=== PATIENT | female | born 1945 | race Caucasian/White ===

== ENCOUNTER → 2016-03-13 | Outpatient (REF) | payer OTHER ==
[~2016-03-13] MED LIST: ATEN50TA2 PO; DULO30CA PO; DYAZ37.5 PO; EXCEDRINE PO; GABA300C3 PO; HYDR-3713 PO; OXYC15TA76 PO; ROBA500T PO; TAMO10TA PO; TYLE500T78 PO; WARF4TAB51 PO
[2016-03-13 16:47] LABS: MEAN CORPUSCULAR HGB CONC 34.9 g/dl (32.0-36.5); MEAN CORPUSCULAR VOLUME 88.9 fl (80.0-96.0); RED CELL DISTRIBUTION WIDTH 13.6 % (11.5-14.5); WHITE BLOOD COUNT 10.7 K/mm3 (4.0-10.0)
[2016-03-13 16:48] LABS: INR 1.02
[2016-03-13 17:42] LABS: ALBUMIN 3.3 GM/DL (3.2-5.2); ALBUMIN/GLOBULIN RATIO 1.03 (1.00-1.93); ALKALINE PHOSPHATASE 65 U/L (45-117); ALT/SGPT 13 U/L (12-78); ANION GAP 9 MEQ/L (8-16); AST/SGOT 12 U/L (15-37); BILIRUBIN,TOTAL 0.3 MG/DL (0.2-1.0); BLOOD UREA NITROGEN 23 MG/DL (7-18); CALCIUM LEVEL 8.8 MG/DL (8.8-10.2); CARBON DIOXIDE LEVEL 28 MEQ/L (21-32); CHLORIDE LEVEL 102 MEQ/L (98-107); CHOLESTEROL LEVEL 190 MG/DL (<200); GLOMERULAR FILTRATION RATE 52.1 (>39); POTASSIUM SERUM 3.5 MEQ/L (3.5-5.1); SODIUM LEVEL 139 MEQ/L (136-145); TOTAL PROTEIN 6.5 GM/DL (6.4-8.2); TRIGLYCERIDES LEVEL 831 MG/DL (<150)
[2016-03-13 17:47] LABS: GLUCOSE, FASTING 162 MG/DL (83-110)
[2016-03-15 10:29] LABS: HEP C VIRUS AB SCREEN MEDICARE < 0.0 INDEX (<0.8)
== END | disposition home or self-care (01) ==
LOC: M SFHCCLAY 10:55
PROVIDERS: ATTEND Family Medicine
DX: M54.16 Radiculopathy, lumbar region (principal); I10 Essential (primary) hypertension; E78.2 Mixed hyperlipidemia; Z79.01 Long term (current) use of anticoagulants; Z11.59 Encounter for screening for other viral diseases
CPT/HCPCS: 36415; 80053; 80061; 85027; 85610; G0463; G0472

== ENCOUNTER → 2016-04-22 | Outpatient (REF) | payer OTHER ==
[2016-04-22 20:35] LABS: INR 1.02
== END | disposition home or self-care (01) ==
LOC: M LAB REF 17:02
PROVIDERS: ATTEND Internal Medicine Medical Oncology
DX: C50.919 Malignant neoplasm of unspecified site of unspecified female breast (principal)

== ENCOUNTER → 2016-04-22 | Outpatient (REF) | payer OTHER ==
[2016-04-22 18:16] LABS: CHOLESTEROL LEVEL 166 MG/DL (<200); GLUCOSE, FASTING 162 MG/DL (83-110); TRIGLYCERIDES LEVEL 500 MG/DL (<150)
== END | disposition home or self-care (01) ==
LOC: M SFHCCLAY 09:37
PROVIDERS: ATTEND Family Medicine
DX: E11.9 Type 2 diabetes mellitus without complications (principal); E78.1 Pure hyperglyceridemia; C50.919 Malignant neoplasm of unspecified site of unspecified female breast

== ENCOUNTER → 2016-06-03 | Outpatient (REF) | payer OTHER ==
[2016-06-03 12:24] LABS: ANION GAP 10 MEQ/L (8-16); BLOOD UREA NITROGEN 19 MG/DL (7-18); CALCIUM LEVEL 8.9 MG/DL (8.8-10.2); CARBON DIOXIDE LEVEL 27 MEQ/L (21-32); CHLORIDE LEVEL 103 MEQ/L (98-107); CHOLESTEROL LEVEL 164 MG/DL (<200); GLOMERULAR FILTRATION RATE 47.1 (>39); GLUCOSE, FASTING 164 MG/DL (83-110); POTASSIUM SERUM 3.8 MEQ/L (3.5-5.1); SODIUM LEVEL 140 MEQ/L (136-145); TRIGLYCERIDES LEVEL 458 MG/DL (<150)
== END ==
LOC: M SFHCCLAY 09:06
PROVIDERS: ATTEND Family Medicine
DX: E78.1 Pure hyperglyceridemia (principal); E11.9 Type 2 diabetes mellitus without complications

== ENCOUNTER → 2016-08-07 | Outpatient (REF) | payer OTHER ==
[~2016-08-07] MED LIST changes: +GABA-282 PO; -GABA300C3 PO
[2016-08-07 12:02] LABS: ALBUMIN 3.3 GM/DL (3.2-5.2); ALBUMIN/GLOBULIN RATIO 1.18 (1.00-1.93); BILIRUBIN,TOTAL 0.3 MG/DL (0.2-1.0); CALCIUM LEVEL 8.7 MG/DL (8.8-10.2); CREATININE FOR GFR 1.39 MG/DL (0.55-1.02); GLOMERULAR FILTRATION RATE 39.8 (>39); POTASSIUM SERUM 3.7 MEQ/L (3.5-5.1); TOTAL PROTEIN 6.1 GM/DL (6.4-8.2)
== END ==
LOC: M SFHCCLAY 08:38
PROVIDERS: ATTEND Family Medicine
DX: E11.9 Type 2 diabetes mellitus without complications (principal); E78.1 Pure hyperglyceridemia

== ENCOUNTER → 2016-08-20 | Outpatient (REF) | payer OTHER ==
[2016-08-20 17:24] LABS: INR 1.06
== END ==
LOC: M LAB REF 16:32
PROVIDERS: ATTEND Internal Medicine Medical Oncology
DX: C50.919 Malignant neoplasm of unspecified site of unspecified female breast (principal)

== ENCOUNTER → 2016-09-13 | Outpatient (CLI) | payer OTHER ==
--- NOTE | 2016-09-13 16:54 | REP ---
Low-dose screening chest CT without IV contrast: There are no comparison studies. Studies performed without IV contrast and images are presented at lung windowing only. The the following lung nodules are identified. Image 25, right upper lobe peripherally, 7 mm. Image 28, right upper lobe anteriorly, 3 mm. Image 31, right upper lobe, 10 mm, ground-glass nodule. Image 40, left lower lobe, 14 mm, ground-glass nodule. Image 89, deep posterior sulcus left lung, 9 mm. The nodule with the highest degree of suspicion is the 9 mm nodule in the deep sulcus of the left lower lobe. This is a category 4A nodule with a 5-15 percent probability of malignancy. Recommend PET scan and a 3-month follow-up low-dose CT scan of the chest. Signed by Zaheer Pineda MD 09/13/2016 04:45 P
== END ==
LOC: M RAD 15:34
PROVIDERS: ATTEND Internal Medicine Medical Oncology
DX: R91.8 Other nonspecific abnormal finding of lung field (principal); Z87.891 Personal history of nicotine dependence

== ENCOUNTER → 2016-10-09 | Outpatient (CLI) | payer OTHER ==
--- NOTE | 2016-10-09 17:32 | REP ---
Whole body PET CT scan: The patient has a history of breast carcinoma of the right breast in 2004 and 2013. In addition, the patient's history of left breast DCIS in 2013. The patient had a low-dose screening chest CT dated 09/13/2016 that identified three right upper lobe lung nodules and to left lower lobe lung nodules. Whole body PET scanning is performed of the skull base to the upper thighs. Neck and supraclavicular areas: There are no hypermetabolic foci. Chest: There are no hypermetabolic foci. Specifically, none of the patient's lung nodules is radio tracer avid. There are no foci in the addison or mediastinum or chest wall. Abdomen, pelvis and upper thighs: There are no hypermetabolic foci. Impression: There are no hypermetabolic foci. Specifically, none of the patient's known lung nodules demonstrates radiotracer avidity. The study is performed with 10 mCi of F 18 FDG. Signed by Zaheer Pineda MD 10/09/2016 05:23 P
== END ==
LOC: M PLARAD 07:40
PROVIDERS: ATTEND Internal Medicine Medical Oncology
DX: Z85.3 Personal history of malignant neoplasm of breast (principal); R91.8 Other nonspecific abnormal finding of lung field
CPT/HCPCS: 78815; A9552

== ENCOUNTER → 2016-11-13 | Outpatient (REF) | payer OTHER ==
[2016-11-13 12:33] LABS: CALCIUM LEVEL 9.2 MG/DL (8.8-10.2); CREATININE FOR GFR 1.14 MG/DL (0.55-1.02); GLOMERULAR FILTRATION RATE 49.9 (>39); POTASSIUM SERUM 3.9 MEQ/L (3.5-5.1)
== END ==
LOC: M SFHCCLAY 09:02
PROVIDERS: ATTEND Family Medicine
DX: E11.9 Type 2 diabetes mellitus without complications (principal)

== ENCOUNTER → 2016-11-20 | Outpatient (REF) | payer OTHER ==
[2016-11-21 12:03] LABS: PERCENT SATURATION 16.1 % (13.2-45.0)
[2016-11-21 12:09] LABS: FOLATE 11.5 NG/ML
[2016-11-21 12:34] LABS: BASO # 0.1 K/mm3 (0.0-0.2); BASO % 1.1 % (0.0-1.0); EOS # 0.2 K/mm3 (0.0-0.50); EOS % 3.1 % (0.0-3.0); LARGE UNSTAINED CELL # 0.1 K/mm3 (0.0-0.4); LARGE UNSTAINED CELL % 1.4 % (0.0-4.0); LYMPH # 2.4 K/mm3 (1.5-4.5); LYMPH % 35.5 % (24.0-44.0); MEAN CORPUSCULAR HGB CONC 34.3 g/dl (32.0-36.5); MEAN CORPUSCULAR VOLUME 93.1 fl (80.0-96.0); MONO # 0.5 K/mm3 (0.0-0.8); MONO % 6.5 % (0.0-5.0); NEUTROPHILS # 3.6 K/mm3 (1.8-7.7); NEUTROPHILS % 52.4 % (36.0-66.0); PLATELET COUNT, AUTOMATED 201 k/mm3 (150-450); RED CELL DISTRIBUTION WIDTH 12.9 % (11.5-14.5); WHITE BLOOD COUNT 6.8 K/mm3 (4.0-10.0)
== END ==
LOC: M SFHCCLAY 14:11
PROVIDERS: ATTEND Family Medicine
DX: D64.9 Anemia, unspecified (principal)
CPT/HCPCS: 36415; 82607; 82746; 83550; 85025; G0463

== ENCOUNTER → 2016-12-16 | Outpatient (CLI) | payer OTHER ==
--- NOTE | 2016-12-16 09:26 | REP ---
CT study of the chest without contrast: History: Abnormal lung field finding. Comparison chest CT study September 13, 2016. Comparison PET-CT October 09, 2016. The patient is status post bilateral mastectomy. There are bilateral axillary and chest wall clips. No chest wall mass lesion is seen. Some moderate vascular calcification is seen along the course of the coronary arteries and in the aortic arch. No hilar or mediastinal mass or adenopathy is observed. No pleural or pericardial effusion is seen. No adrenal lesion is observed. Previously noted low-density hemangiomas in the liver are again seen unchanged from [address] study. Visualized upper abdominal structures are otherwise unremarkable. There is mild linear fibrosis in the left lower lobe again noted. The previously noted 9 mm nodular opacity in the left lateral pleural angle is within the area of linear fibrosis. This is unchanged in the interval since the September 13, 2016 study. The ground-glass opacity noted in the posterior segment of the left upper lobe previously is also unchanged. 14 mm. There is a smaller adjacent ground-glass opacity which is unchanged. The 7 mm non-solid opacity in the right upper lobe is unchanged. There is an additional small ground-glass opacity in the left upper lobe superiorly which is unchanged and which measures 9 mm. There is a 5 mm ground-glass opacity in the right lower lobe on today's study page 49 of 109 in series 201. There are several tiny nodules which are unchanged. Impression: Multiple stable ground-glass opacities bilaterally as above. No new pulmonary nodules seen. Stable hemangiomas of the liver. Vascular calcification. Status post bilateral mastectomy. Signed by Kameron Mesa MD 12/16/2016 01:17 P
== END ==
LOC: M RAD 08:04
PROVIDERS: ATTEND Internal Medicine Pulmonary Disease
DX: R91.8 Other nonspecific abnormal finding of lung field (principal)

== ENCOUNTER → 2016-12-24 | Outpatient (REF) | payer OTHER ==
[2016-12-24 18:24] LABS: INR 0.96
== END ==
LOC: M LAB REF 17:16
PROVIDERS: ATTEND Internal Medicine Medical Oncology
DX: C50.919 Malignant neoplasm of unspecified site of unspecified female breast (principal)

== ENCOUNTER → 2017-03-24 | Outpatient (REF) | payer OTHER ==
[2017-03-24 17:58] LABS: ANION GAP 5 MEQ/L (8-16); BLOOD UREA NITROGEN 18 MG/DL (7-18); CALCIUM LEVEL 8.8 MG/DL (8.8-10.2); CARBON DIOXIDE LEVEL 31 MEQ/L (21-32); CHLORIDE LEVEL 104 MEQ/L (98-107); CREATININE FOR GFR 1.19 MG/DL (0.55-1.02); GLOMERULAR FILTRATION RATE 47.5 (>39); GLUCOSE, FASTING 133 MG/DL (83-110); POTASSIUM SERUM 3.4 MEQ/L (3.5-5.1); SODIUM LEVEL 140 MEQ/L (136-145)
[2017-03-24 18:08] LABS: ESTIMATED AVERAGE GLUCOSE 160 MG/DL (60-110); HEMOGLOBIN A1c 7.2 %
== END ==
LOC: M SFHCCLAY 11:09
DX: E11.9 Type 2 diabetes mellitus without complications (principal)
CPT/HCPCS: 83036

== ENCOUNTER → 2017-06-24 | Outpatient (REF) | payer OTHER ==
[2017-06-24 14:14] LABS: INR 1.08; PROTHROMBIN TIME 14.2 SECONDS (12.4-14.5)
== END ==
LOC: M LAB REF 13:49
DX: C50.919 Malignant neoplasm of unspecified site of unspecified female breast (principal); Z79.01 Long term (current) use of anticoagulants
CPT/HCPCS: 85610

== ENCOUNTER → 2017-07-07 | Outpatient (REF) | payer OTHER ==
[2017-07-07 11:50] LABS: INR 1.03; PROTHROMBIN TIME 13.6 SECONDS (12.4-14.5)
== END ==
LOC: M SFHCCLAY 08:30
DX: Z51.81 Encounter for therapeutic drug level monitoring (principal); Z79.01 Long term (current) use of anticoagulants
CPT/HCPCS: 85610

== ENCOUNTER → 2017-10-01 | Outpatient (CLI) | payer OTHER | LOC: M RAD 08:52 | DX: R91.1 Solitary pulmonary nodule (principal) | CPT/HCPCS: 71250 ==

== ENCOUNTER → 2017-11-24 | Outpatient (REF) | payer OTHER ==
[2017-11-24 17:40] LABS: ALBUMIN 3.5 GM/DL (3.2-5.2); ALBUMIN/GLOBULIN RATIO 1.25 (1.00-1.93); ALKALINE PHOSPHATASE 45 U/L (45-117); ALT/SGPT 15 U/L (12-78); ANION GAP 10 MEQ/L (8-16); AST/SGOT 15 U/L (7-37); BILIRUBIN,TOTAL 0.3 MG/DL (0.2-1.0); BLOOD UREA NITROGEN 18 MG/DL (7-18); CALCIUM LEVEL 9.3 MG/DL (8.8-10.2); CARBON DIOXIDE LEVEL 27 MEQ/L (21-32); CHLORIDE LEVEL 103 MEQ/L (98-107); CHOLESTEROL LEVEL 142 MG/DL (<200); CHOLESTEROL RISK RATIO 3.837 (<5); CREATININE FOR GFR 1.13 MG/DL (0.55-1.30); ESTIMATED AVERAGE GLUCOSE 151 MG/DL (60-110); GLOMERULAR FILTRATION RATE 50.2 (>39); GLUCOSE, FASTING 187 MG/DL (70-100); HDL CHOLESTEROL 37 MG/DL (>40); HEMOGLOBIN A1c 6.9 %; LDL CHOLESTEROL 25 MG/DL (<100); NON-HDL-C 105 MG/DL; POTASSIUM SERUM 3.7 MEQ/L (3.5-5.1); SODIUM LEVEL 140 MEQ/L (136-145); TOTAL PROTEIN 6.3 GM/DL (6.4-8.2); TRIGLYCERIDES LEVEL 398 MG/DL (<150)
== END ==
LOC: M SFHCCLAY 11:44
DX: E11.9 Type 2 diabetes mellitus without complications (principal); E78.2 Mixed hyperlipidemia; I10 Essential (primary) hypertension
CPT/HCPCS: 80053

== ENCOUNTER → 2018-02-10 | Outpatient (REF) | payer OTHER ==
[2018-02-11 16:10] LABS: CREATININE, URINE 56.4 MG/DL; MALB URINE SIEMENS 8.8 MG/L; MAU/CREAT RATIO 15.6 MCG/MG (0.0-30.0)
== END ==
LOC: M SFHCCLAY 14:43
DX: E11.9 Type 2 diabetes mellitus without complications (principal)
CPT/HCPCS: 82043

== ENCOUNTER → 2018-04-06 | Outpatient (REF) | payer MEDICARE ==
[~2018-04-06] MED LIST changes: +CALC-190 PO; +FENO145T13 PO; -GABA-282 PO; +GABA-843 PO; +METF750T PO
[2018-04-06 12:25] LABS: HEMOGLOBIN A1c 8.1 %
[2018-04-06 12:38] LABS: CREATININE FOR GFR 1.19 MG/DL (0.55-1.30); GLOMERULAR FILTRATION RATE 47.3 (>39); POTASSIUM SERUM 3.8 MEQ/L (3.5-5.1)
== END ==
LOC: M SFHCCLAY 09:48
PROVIDERS: ATTEND Family Medicine
DX: E11.9 Type 2 diabetes mellitus without complications (principal)

== ENCOUNTER → 2018-04-10 | Outpatient (CLI) | payer MEDICARE ==
--- NOTE | 2018-04-10 10:45 | REP ---
CT chest: Without contrast. History: Nonspecific lung field findings. The patient has a history of breast carcinoma. Comparison study: October 01, 2017. December 16, [address] study and October 09, 2016 PET/CT studies are also reviewed. The most remote prior CT study as a screening study from September 13, 2016. CT findings: The patient is status post bilateral mastectomy. No pleural effusion is seen. No axillary or other adenopathy is appreciated. No adrenal or other upper abdominal lesion is seen. There is a cyst in the left kidney again noted. There are multiple solid, ground-glass opacity, and partly solid pulmonary nodules bilaterally again noted. On today's axial series 201 page 53 of 109 there is a 7 mm solid component associated with an air containing cyst and a nodule in the left lower lobe. The nodular solid component appears larger, now 7 mm, previously 5 mm. There are two new 3 mm right middle lobe nodules visible on page 49 of 109 in series 201 and page 50. Scattered ground-glass opacities and air cysts are again seen unchanged. There is a 6 mm soft tissue density along one wall of an air cyst in the right lower lobe on page 51 of 109. The air cyst is not new. The soft tissue density appears a little more prominent. Impression: Multiple pulmonary nodules bilaterally with scattered ground-glass opacities which are stable. There are 2 mixed nodules; one in the left lower lobe and the other in the right lower lobe, which contain soft tissue solid components that have enlarged. There are two new tiny 3 mm nodules in the right middle lobe. Electronically Signed by Kameron Mesa MD 04/10/2018 10:47 A
== END ==
LOC: M RAD 09:43
PROVIDERS: ATTEND Internal Medicine Pulmonary Disease
DX: R91.8 Other nonspecific abnormal finding of lung field (principal)

== ENCOUNTER → 2018-07-06 | Outpatient (REF) | payer MEDICARE ==
[~2018-07-06] MED LIST changes: -DULO30CA PO; +DULO30CA9 PO; +GLIM2TAB PO; +GNP650TA8 PO; +TAMO20TA8 PO
[2018-07-06 18:29] LABS: CALCIUM LEVEL 8.5 MG/DL (8.8-10.2); CREATININE FOR GFR 1.27 MG/DL (0.55-1.30); GLOMERULAR FILTRATION RATE 43.9 (>39); POTASSIUM SERUM 3.7 MEQ/L (3.5-5.1)
[2018-07-06 20:39] LABS: HEMOGLOBIN A1c 6.5 %
== END ==
LOC: M SFHCCLAY 10:28
PROVIDERS: ATTEND Family Medicine
DX: E11.9 Type 2 diabetes mellitus without complications (principal)

== ENCOUNTER → 2018-08-19 | Outpatient (CLI) | payer MEDICARE ==
--- NOTE | 2018-08-19 11:50 | REP ---
CT CHEST WITHOUT IV CONTRAST: CT chest performed without IV contrast. Sagittal and coronal reconstructions are performed. Comparison is made with multiple prior exams most recently 04/10/2018. There are scattered interstitial fibrotic changes and some mild scattered ground-glass opacities bilaterally which are stable. There are focal bullae noted as on prior study. There is mild bronchiectasis. In the right lower lobe on image 50, a small bulla demonstrated soft tissue density along the lateral wall on the study of 04/10/2018. This has improved with mild residual wall thickening. The two 3 mm nodular densities in the right middle lobe are not seen on today's exam. In the left lower lobe, a small bulla again contains a mildly lobulated 7 mm nodule, which is unchanged. This is best seen on image 55. No new abnormal parenchymal opacities are seen. There are metallic clips in both axillary regions, status post bilateral mastectomy. Subcentimeter mediastinal lymph nodes appear stable. The heart is not enlarged. There is no pleural or pericardial effusion. There is mild atherosclerotic calcification of the thoracic aorta without aneurysm. A nodule anteriorly in the left lobe of the liver measures about 4 cm in transverse diameter and a slightly smaller nodule in the right lobe superiorly, both appear unchanged compared back to a prior PET/CT of 10/09/2016. There is a cyst in the upper pole of the left kidney. IMPRESSION: Decreased opacification of a small bulla in the right lower lobe and mild residual wall thickening. The two 3 mm nodular densities in the right middle lobe are not seen on today's exam. There is a persistence of a 7 mm lobulated nodule in a small bulla in the left lower lobe. Recommend followup CT in 6 months. Electronically Signed by Zaheer Ocasio MD 08/19/2018 04:54 P
== END ==
LOC: M RAD 10:26
PROVIDERS: ATTEND Internal Medicine Pulmonary Disease
DX: R91.1 Solitary pulmonary nodule (principal)

== ENCOUNTER → 2018-11-11 | Outpatient (REF) | payer MEDICARE ==
[~2018-11-11] MED LIST changes: -METF750T PO; +METF750T36 PO
[2018-11-11 17:17] LABS: ALBUMIN 3.3 GM/DL (3.2-5.2); BILIRUBIN,TOTAL 0.4 MG/DL (0.2-1.0); CALCIUM LEVEL 8.9 MG/DL (8.8-10.2); CHOLESTEROL RISK RATIO 4.081 (<5); CREATININE FOR GFR 1.2 MG/DL (0.55-1.30); GLOMERULAR FILTRATION RATE 46.8 (>39); TOTAL PROTEIN 6.2 GM/DL (6.4-8.2)
[2018-11-11 18:42] LABS: HEMOGLOBIN A1c 5.9 %
== END ==
LOC: M SFHCCLAY 09:44
PROVIDERS: ATTEND Family Medicine
DX: E11.9 Type 2 diabetes mellitus without complications (principal); E78.2 Mixed hyperlipidemia

== ENCOUNTER → 2019-02-23 | Outpatient (CLI) | payer MEDICARE ==
[~2019-02-23] MED LIST changes: +GABA-1171 PO; -GLIM2TAB PO; +GLIM2TAB2 PO
--- NOTE | 2019-02-23 10:41 | REP ---
CT CHEST WITHOUT IV CONTRAST: CT chest performed without IV contrast. Comparison made with multiple prior exams most recently 08/19/2018. The previously noted nodule in the left lower lobe within a small bulla has slightly increased in size now measuring 8.0 x 7.0 mm. Previously it was 7.0 x 5.0 mm. There is also a new 5.0 x 3.0 mm nodular density in the left upper lobe on image 26 for which 6 month followup exam is recommended . Scattered areas of stable fibrotic scarring are seen diffusely bilaterally. There is now only minimal lateral wall thickening of a small bulla in the right lower lobe, which continues to improve. There is mild bronchiectasis again noted. I see no evidence of axillary or mediastinal adenopathy. The heart is normal in size. There is no pleural or pericardial effusion. Liver is unchanged in appearance compared to prior studies dating back to 10/01/2017. Subcentimeter right adrenal nodule remains stable since that time. There appears to be a cyst in the upper pole of the left kidney also unchanged. There are degenerative changes of the spine. There is also a new 5.0 x 3.0 mm nodular density in the left upper lobe on image 26 for which 6 month followup exam is recommended. IMPRESSION: Slight increase in size of left lower lobe nodule within a small bulla, currently 8.0 x 7.0 mm and previously 7.0 x 5.0 mm. Recommend PET/CT or biopsy. No new nodule or adenopathy. There is also a new 5.0 x 3.0 mm nodular density in the left upper lobe on image 26 for which 6 month followup exam is recommended. Electronically Signed by Zaheer Ocasio MD 02/23/2019 04:03 P
== END ==
LOC: M RAD 08:47
PROVIDERS: ATTEND Internal Medicine Pulmonary Disease
DX: R91.8 Other nonspecific abnormal finding of lung field (principal)

== ENCOUNTER → 2019-03-15 | Outpatient (REF) | payer MEDICARE ==
[2019-03-15 12:17] LABS: HEMOGLOBIN A1c 5.9 %
[2019-03-15 12:30] LABS: CALCIUM LEVEL 8.6 MG/DL (8.8-10.2); CREATININE FOR GFR 1.33 MG/DL (0.55-1.30); GLOMERULAR FILTRATION RATE 41.5 (>39); POTASSIUM SERUM 3.8 MEQ/L (3.5-5.1)
== END ==
LOC: M SFHCCLAY 09:23
PROVIDERS: ATTEND Family Medicine
DX: E11.9 Type 2 diabetes mellitus without complications (principal)

== ENCOUNTER → 2019-06-23 | Outpatient (CLI) | payer MEDICARE ==
[~2019-06-23] MED LIST changes: -FENO145T13 PO; +FENO145T7 PO; -GLIM2TAB2 PO; +GLIM2TAB4 PO; +OXYC-1 PO; -OXYC15TA76 PO
== END ==
LOC: M LABSMTC 10:53
PROVIDERS: ATTEND Family Medicine
DX: Z11.59 Encounter for screening for other viral diseases (principal); Z20.828 Contact with and (suspected) exposure to other viral communicable diseases
CPT/HCPCS: G0463; U0002

== ENCOUNTER → 2019-07-09 | Outpatient (REF) | payer MEDICARE ==
[~2019-07-09] MED LIST changes: +ASPI81TA86 PO; +GABA-282 PO; -GABA-843 PO; +POTA1TAB23; +PRED20TA PO
[2019-07-09 16:25] LABS: CALCIUM LEVEL 8.7 MG/DL (8.8-10.2); CREATININE FOR GFR 1.24 MG/DL (0.55-1.30); POTASSIUM SERUM 3.6 MEQ/L (3.5-5.1)
[2019-07-09 16:39] LABS: HEMOGLOBIN A1c 6.3 %
== END ==
LOC: M SFHCCLAY 09:45
PROVIDERS: ATTEND Family Medicine
DX: E11.9 Type 2 diabetes mellitus without complications (principal)
CPT/HCPCS: 36415; 80048; 83036; G0463

== ENCOUNTER → 2019-08-06 | Outpatient (CLI) | payer MEDICARE ==
[~2019-08-06] MED LIST changes: -ASPI81TA86 PO; -GABA-282 PO; +GABA-843 PO; -POTA1TAB23; -PRED20TA PO
--- NOTE | 2019-08-06 11:55 | REP ---
CT CHEST WITHOUT IV CONTRAST: CT chest performed without IV contrast. Sagittal and coronal reconstruction images are performed. Comparison is made with multiple prior exams, most recently 02/24/2020. Previously noted nodular opacity in the left upper lobe has resolved. This appears to have represented material in a small bulla. The 7 mm nodule in the left lobe bulla is unchanged. No new nodule is seen bilaterally. There are scattered stable fibrotic changes diffusely bilaterally. Stable subcentimeter mediastinal lymph nodes are present. Multiple metallic clips are seen in both axillary regions. There is mild atherosclerotic calcification of the thoracic aorta with no aneurysm. There is no pleural or pericardial effusion. The heart is normal in size. There is a small hiatal hernia. Nodule in the left lobe of the liver anteriorly remains stable. There are bilateral renal cysts. There are degenerative changes of the spine. IMPRESSION: Resolution of subcentimeter nodular opacity left upper lobe, which appears to have represented material in a small bulla. There is a stable 7 mm nodule in the left lower lobe, which is located within a small bulla. No new nodule or adenopathy. Electronically Signed by Zaheer Ocasio MD 08/06/2019 03:52 P
== END ==
LOC: M RAD 10:40
PROVIDERS: ATTEND Internal Medicine Pulmonary Disease
DX: R91.1 Solitary pulmonary nodule (principal); Z85.3 Personal history of malignant neoplasm of breast; J84.10 Pulmonary fibrosis, unspecified; I70.0 Atherosclerosis of aorta; K44.9 Diaphragmatic hernia without obstruction or gangrene; N28.1 Cyst of kidney, acquired

== ENCOUNTER → 2019-11-09 | Outpatient (REF) | payer MEDICARE ==
[~2019-11-09] MED LIST changes: +ASPI81TA86 PO; +POTA1TAB23; +PRED20TA PO
[2019-11-09 17:13] LABS: CALCIUM LEVEL 9.1 MG/DL (8.8-10.2); CREATININE FOR GFR 1.25 MG/DL (0.55-1.30); GLOMERULAR FILTRATION RATE 44.5 (>39); POTASSIUM SERUM 3.5 MEQ/L (3.5-5.1)
[2019-11-09 17:54] LABS: HEMOGLOBIN A1c 5.7 %
== END ==
LOC: M LABDRAWC 15:56
PROVIDERS: ATTEND Family Medicine
DX: I11.9 Hypertensive heart disease without heart failure (principal); E11.9 Type 2 diabetes mellitus without complications
CPT/HCPCS: 36415; 80048; 83036; G0463

== ENCOUNTER 2019-12-15 15:47 | Emergency (ER) | payer MEDICARE ==
[~2019-12-15] VITALS: Ht 157.5 cm; Wt 92.3 kg
[~2019-12-15 15:47] MED LIST changes: -PRED20TA PO
[2019-12-15] MEDS ORDERED: COMBIVENT RESPIMAT 100-20MCG INHALER 4GM INH ONE (16:30)
[2019-12-15] MEDS ORDERED: methylPREDNISolone 125MG 2ML VIAL IV ONE (16:30)
[2019-12-15 17:21] LABS: BASO # 0.1 10^3/uL (0.0-0.2); EOS # 0.3 10^3/uL (0.0-0.5); EOS % 3.7 % (0.0-3.0); HEMATOCRIT 37.6 % (36.0-47.0); HEMOGLOBIN 12.4 g/dl (12.0-15.5); LYMPH # 2.6 10^3/uL (1.5-5.0); LYMPH % 27.7 % (24.0-44.0); MEAN CORPUSCULAR HEMOGLOBIN 31.1 pg (27.0-33.0); MEAN CORPUSCULAR VOLUME 94.2 fl (80.0-96.0); MONO # 0.8 10^3/uL (0.0-0.8); MONO % 8.2 % (0.0-5.0); NEUTROPHILS # 5.4 10^3/uL (1.5-8.5); NEUTROPHILS % 58.5 % (36.0-66.0); PLATELET COUNT, AUTOMATED 193 10^3/uL (150-450); RED BLOOD COUNT 3.99 10^6/uL (4.00-5.40); WHITE BLOOD COUNT 9.2 10^3/uL (4.0-10.0)
[2019-12-15 17:34] LABS: INR 0.99; PROTHROMBIN TIME 13.2 SECONDS (12.5-14.3)
[2019-12-15 17:53] LABS: ALBUMIN 3.4 GM/DL (3.2-5.2); ALT/SGPT 9 U/L (12-78); BILIRUBIN,DIRECT 0.1 MG/DL (0.0-0.2); BILIRUBIN,TOTAL 0.2 MG/DL (0.2-1.0); BLOOD UREA NITROGEN 17 MG/DL (7-18); CALCIUM LEVEL 9.2 MG/DL (8.8-10.2); CARBON DIOXIDE LEVEL 30 MEQ/L (21-32); CHLORIDE LEVEL 105 MEQ/L (98-107); CK-MB VALUE MASS < 1.0 NG/ML (<3.6); CPK CREATINE PHOSPHOKINASE 54 U/L (26-192); CREATININE FOR GFR 1.42 MG/DL (0.55-1.30); GLOMERULAR FILTRATION RATE 38.4 (>39); GLUCOSE, FASTING 93 MG/DL (70-100); MB/CK RELATIVE INDEX 1.85 (< OR =4); NT-PRO BNP 357 PG/ML (<450); POTASSIUM SERUM 3.7 MEQ/L (3.5-5.1); SODIUM LEVEL 140 MEQ/L (136-145); TOTAL PROTEIN 6.5 GM/DL (6.4-8.2); TROPONIN I < 0.02 NG/ML (< 0.10)
[2019-12-15] MEDS ORDERED: IPRATROPIUM 0.5MG/ALBUTEROL 2.5MG INH SOL UD 3ML (DUONEB) NEB ONE ×2 (18:15→19:45)
--- NOTE | 2019-12-15 18:37 | ECGEPIP ---
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
--- NOTE | 2019-12-15 19:12 | REPVR ---
PROCEDURE INFORMATION: Exam: XR Chest, 2 Views Exam date and time: 12/15/2019 4:28 PM Age: 74 years old Clinical indication: Cough; Additional info: Dyspnea/cough TECHNIQUE: Imaging protocol: XR of the chest Views: 2 views. COMPARISON: CT Chest without contrast 08/06/2019 10:54 AM FINDINGS: Lungs: Bilateral pulmonary hyperinflation, consistent with underlying COPD. No evidence of acute pneumonia. Pleural space: Unremarkable. No pleural effusion. No pneumothorax. Heart/Mediastinum: The heart size is normal. Bones/joints: Mild chronic degenerative vertebral body endplate osteophytic disease is seen in the mid to lower thoracic spine. Soft tissues: Surgical clips are seen in the chest wall areas bilaterally. IMPRESSION: 1. Bilateral pulmonary hyperinflation, consistent with underlying COPD. No evidence of acute pneumonia. 2. Mild chronic degenerative vertebral body endplate osteophytic disease is seen in the mid to lower thoracic spine. Electronically signed by: Faheem Baker On 12/15/2019 19:12:01 PM
[2019-12-15 19:46] VITALS: BP 159/68
[2019-12-15 20:12] VITALS: O2SAT 94
[2019-12-15] MEDS ORDERED: PRED20TA PO (20:56)
== END 2019-12-15 21:07 | disposition home or self-care (01) ==
LOC: M ED 15:47
DX: J44.1 Chronic obstructive pulmonary disease with (acute) exacerbation (principal); B97.89 Other viral agents as the cause of diseases classified elsewhere; B97.10 Unspecified enterovirus as the cause of diseases classified elsewhere; I10 Essential (primary) hypertension; G43.909 Migraine, unspecified, not intractable, without status migrainosus; M54.9 Dorsalgia, unspecified; Z86.718 Personal history of other venous thrombosis and embolism; R91.8 Other nonspecific abnormal finding of lung field; F17.200 Nicotine dependence, unspecified, uncomplicated; Z91.048 Other nonmedicinal substance allergy status; Z88.5 Allergy status to narcotic agent; Z88.1 Allergy status to other antibiotic agents
CPT/HCPCS: 71046; 80048; 80076; 82550; 82553; 83880; 84443; 84484; 85025; 85610; 87486; 87581; 87633; 87798; 93005; 93041; 94640; 94760; 96374; 99285; J2930

== ENCOUNTER → 2020-03-24 | Outpatient (REF) | payer MEDICARE ==
[~2020-03-24] MED LIST changes: +GABA-282 PO; -GABA-843 PO; +PRED20TA PO
[2020-03-24 11:35] LABS: HEMOGLOBIN A1c 5.9 %
[2020-03-24 11:46] LABS: CALCIUM LEVEL 8.9 MG/DL (8.8-10.2); CHOLESTEROL RISK RATIO 3.1 (<5); CREATININE FOR GFR 1.33 MG/DL (0.55-1.30); GLOMERULAR FILTRATION RATE 41.4 (>39); POTASSIUM SERUM 3.6 MEQ/L (3.5-5.1)
[2020-03-24 11:52] LABS: CREATININE, URINE 35.9 MG/DL; MALB URINE SIEMENS 8.9 MG/L; MAU/CREAT RATIO 24.7 MCG/MG (0.0-30.0)
== END ==
LOC: M SFHCCLAY 08:23
PROVIDERS: ATTEND Family Medicine
DX: E11.9 Type 2 diabetes mellitus without complications (principal); E78.1 Pure hyperglyceridemia; E78.2 Mixed hyperlipidemia; I11.9 Hypertensive heart disease without heart failure

== ENCOUNTER → 2020-07-20 | Outpatient (REF) | payer MEDICARE ==
[2020-07-20 17:00] LABS: CALCIUM LEVEL 8.9 MG/DL (8.8-10.2); CREATININE FOR GFR 1.13 MG/DL (0.55-1.30); POTASSIUM SERUM 3.6 MEQ/L (3.5-5.1)
== END ==
LOC: M SFHCCLAY 11:51
PROVIDERS: ATTEND Family Medicine
DX: I11.9 Hypertensive heart disease without heart failure (principal); E11.9 Type 2 diabetes mellitus without complications
CPT/HCPCS: 80048; 83036; G0463

== ENCOUNTER → 2020-12-29 | Outpatient (CLI) | payer MEDICARE ==
--- NOTE | 2021-01-01 03:06 | REP ---
INDICATION: NICOTINE DEPENDENCE COMPARISON: None. TECHNIQUE: Axial noncontrast images from the thoracic inlet to the upper abdomen using low-dose lung screening technique (LDCT). FINDINGS: Lung [place] are well aerated and demonstrate moderate emphysematous changes including bronchiectasis, few scattered bullae and elements of scarring. Few scattered non solid ground-glass focal opacities are again identified with mild fluctuation as compared to multiple prior examinations. No suspicious solid nodule or mass lesion is identified. No consolidation or effusion. No pneumothorax. Mediastinal lymph nodes are unchanged. IMPRESSION: 1. Lung-RADS category 2. 2. Moderate emphysematous changes. 3. Management recommendations include annual low-dose CT surveillance for high risk patients. <Electronically signed by Emmanuel Brito > 01/01/21 [id number]
== END ==
LOC: M RAD 12:32
PROVIDERS: ATTEND Internal Medicine Pulmonary Disease
DX: F17.218 Nicotine dependence, cigarettes, with other nicotine-induced disorders (principal); R91.8 Other nonspecific abnormal finding of lung field

== ENCOUNTER → 2021-01-08 | Outpatient (CLI) | payer MEDICARE ==
--- NOTE | 2021-01-08 13:59 | DEXAMM ---
INDICATION: ASYMPTOMATIC MENOPAUSE. COMPARISON: None. TECHNIQUE: Bone density was measured using dual-energy x-ray absorptiometry (DEXA). FINDINGS: AP SPINE L1-L4 BMD 1.153 g/cm2 Young Adult T-Score -0.3 Age Matched Z-Score 1.4. LT FEMUR, TOTAL BMD 0.883 g/cm2 Young Adult T-Score -1.0 Age Matched Z-Score 0.8. LT NECK BMD 0.764 g/cm2 Young Adult T-Score -2.0 Age Matched Z-Score 0.0. RT FEMUR, TOTAL BMD 0.834 g/cm2 Young Adult T-Score -1.4 Age Matched Z-Score 0.4. RT NECK BMD 0.787 g/cm2 Young Adult T-Score -1.8 Age Matched Z-Score 0.2. IMPRESSION: There is normal bone density of the spine. There is low bone density of the left hip. There is low bone density of the right hip. FOLLOW-UP: Recommendation for the next bone density exam: 2 years. <Electronically signed by Zaheer Ocasio > 01/08/21 [id number]
== END ==
LOC: M WHC 12:46
PROVIDERS: ATTEND Family Medicine
DX: Z78.0 Asymptomatic menopausal state (principal)

== ENCOUNTER → 2021-02-13 | Outpatient (REF) | payer MEDICARE ==
[~2021-02-13] MED LIST changes: +ASPI81TA26 PO; -POTA1TAB23; +POTA1TAB23 PO; +STIO1AER INH; +TRIA37.5 PO
[2021-02-14 11:34] LABS: BASO # 0.1 10^3/uL (0.0-0.2); BASO % 1.1 % (0.0-1.0); EOS # 0.2 10^3/uL (0.0-0.5); EOS % 2.3 % (0.0-3.0); HEMATOCRIT 36.1 % (36.0-47.0); HEMOGLOBIN 11.7 g/dl (12.0-15.5); LYMPH # 2.4 10^3/uL (1.5-5.0); LYMPH % 29.2 % (24.0-44.0); MEAN CORPUSCULAR HEMOGLOBIN 30.3 pg (27.0-33.0); MEAN CORPUSCULAR HGB CONC 32.4 g/dl (32.0-36.5); MEAN CORPUSCULAR VOLUME 93.5 fl (80.0-96.0); MONO # 0.5 10^3/uL (0.0-0.8); MONO % 6.2 % (2.0-8.0); NEUTROPHILS # 5.1 10^3/uL (1.5-8.5); NEUTROPHILS % 60.6 % (36.0-66.0); PLATELET COUNT, AUTOMATED 186 10^3/uL (150-450); RED BLOOD COUNT 3.86 10^6/uL (4.00-5.40); WHITE BLOOD COUNT 8.3 10^3/uL (4.0-10.0)
[2021-02-14 11:43] LABS: HEMOGLOBIN A1c 6.5 %
[2021-02-14 11:59] LABS: CALCIUM LEVEL 9.2 MG/DL (8.8-10.2); CREATININE FOR GFR 1.47 MG/DL (0.55-1.30); GLOMERULAR FILTRATION RATE 36.8 (>39); POTASSIUM SERUM 4.3 MEQ/L (3.5-5.1)
== END ==
LOC: M SFHCCLAY 14:47
PROVIDERS: ATTEND Family Medicine
DX: E11.9 Type 2 diabetes mellitus without complications (principal)
CPT/HCPCS: 80048; 83036; 85025; 93005; G0463

== ENCOUNTER → 2021-02-27 | Outpatient (CLI) | payer MEDICARE ==
--- NOTE | 2021-02-27 09:54 | REP ---
INDICATION: GENERALIZED ENLARGED LYMPH NODES COMPARISON: None. TECHNIQUE: Grayscale and color evaluation using linear high-frequency transducer. FINDINGS: Ultrasound examination along the right side of the neck demonstrates multiple ovoid lesions most compatible with lymph nodes. Three largest lesions measures 6 x 2 x 5 mm, 11 x 4 x 9 mm, and 8 x 3 x 10 mm. Contralateral left-sided neck for comparison demonstrates similar presumed lymph nodes measuring 10 x 4 x 7 and 10 x 4 x 6 mm. IMPRESSION: Findings most compatible with lymph nodes. <Electronically signed by Emmanuel Brito > 02/27/21 [id number]
== END ==
LOC: M RAD 09:20
PROVIDERS: ATTEND Family Medicine
DX: R59.1 Generalized enlarged lymph nodes (principal)

== ENCOUNTER → 2021-02-28 | Outpatient (CLI) | payer MEDICARE | LOC: M LABSMTC 10:58 | PROVIDERS: ATTEND Anesthesiology | DX: Z01.812 Encounter for preprocedural laboratory examination (principal); Z20.822 Contact with and (suspected) exposure to COVID-19 ==

== ENCOUNTER 2021-03-05 12:27 | Day surgery (SDC) | payer MEDICARE ==
[~2021-03-05] VITALS: Ht 157.5 cm; Wt 87.5 kg
[~2021-03-05 12:27] MED LIST changes: +CYCLOPENTOLATE 1% OPHTH SOLN 2 ML BTL OS SCH; +FLURBIPROFEN 0.03% OPHTH SOLN 2.5 ML OS SCH; +LIDOCAINE 1% SDV 5ML VIAL As Ordered ONE; +LR 1,000 ML IV SCH; +PHENYLEPHRINE 2.5% OPHTH SOL 2ML OS SCH
[2021-03-05] MEDS: TETRACAINE 0.5% OPHTH SOLN 4ML OS SCH ×2 (14:45→14:49)
[2021-03-05] MEDS ORDERED: fentaNYL 100 MCG/2 ML INJECTION As Ordered ONE (16:17)
[2021-03-05] MEDS ORDERED: MIDAZOLAM INJ 2MG/2ML VIAL (J2250 PER 1MG) As Ordered ONE (16:17)
[2021-03-05 16:50] VITALS: BP 178/78
== END 2021-03-05 17:00 | disposition home or self-care (01) ==
LOC: M SDC 12:27
PROVIDERS: ATTEND Ophthalmology
DX: H25.12 Age-related nuclear cataract, left eye (principal); J44.9 Chronic obstructive pulmonary disease, unspecified; I10 Essential (primary) hypertension; G47.33 Obstructive sleep apnea (adult) (pediatric); E11.9 Type 2 diabetes mellitus without complications; Z85.3 Personal history of malignant neoplasm of breast; G43.909 Migraine, unspecified, not intractable, without status migrainosus; Z79.899 Other long term (current) drug therapy; Z79.82 Long term (current) use of aspirin; Z79.84 Long term (current) use of oral hypoglycemic drugs
CPT/HCPCS: 66984; 93005; J2250; J3010; V2632

== ENCOUNTER → 2021-08-30 | Outpatient (REF) | payer MEDICARE ==
[~2021-08-30] MED LIST changes: +APPLTAB2 PO; +CITA20TA6; -CYCLOPENTOLATE 1% OPHTH SOLN 2 ML BTL OS SCH; -FLURBIPROFEN 0.03% OPHTH SOLN 2.5 ML OS SCH; -LIDOCAINE 1% SDV 5ML VIAL As Ordered ONE; -LR 1,000 ML IV SCH; +ONETAB20 PO; -PHENYLEPHRINE 2.5% OPHTH SOL 2ML OS SCH; +RA T500C2 PO; +VITATAB64 PO
[2021-08-30 13:39] LABS: HEMOGLOBIN A1c 5.8 %
[2021-08-30 14:28] LABS: CALCIUM LEVEL 8.7 MG/DL (8.8-10.2); CHOLESTEROL RISK RATIO 3.312 (<5); CREATININE FOR GFR 1.27 MG/DL (0.55-1.30); GLOMERULAR FILTRATION RATE 43.6 (>39); POTASSIUM SERUM 3.8 MEQ/L (3.5-5.1)
[2021-08-30 22:05] LABS: CREATININE, URINE 82.6 MG/DL; MALB URINE SIEMENS < 5.0 MG/L
== END ==
LOC: M SFHCCLAY 07:27
PROVIDERS: ATTEND Family Medicine
DX: E11.9 Type 2 diabetes mellitus without complications (principal)

== ENCOUNTER → 2022-02-05 | Outpatient (CLI) | payer MEDICARE ==
[~2022-02-05] MED LIST changes: -TAMO10TA PO; +TAMO10TA8 PO
== END ==
LOC: M RAD 11:05
PROVIDERS: ATTEND Internal Medicine Pulmonary Disease
DX: Z87.891 Personal history of nicotine dependence (principal)

== ENCOUNTER → 2022-02-27 | Outpatient (REF) | payer MEDICARE ==
[2022-02-27 19:13] LABS: CHOLESTEROL RISK RATIO 3.16 (<5); HDL CHOLESTEROL 38.5 MG/DL (>40); LDL CHOLESTEROL 41.9 MG/DL (<100)
[2022-02-27 19:27] LABS: HEMOGLOBIN A1c 5.9 % (4.0-6.0)
== END ==
LOC: M SFHCCLAY 11:46
PROVIDERS: ATTEND Nurse Practitioner Family
DX: E11.9 Type 2 diabetes mellitus without complications (principal); E78.2 Mixed hyperlipidemia

== ENCOUNTER → 2022-05-02 | Outpatient (REF) | payer OTHER | LOC: M SFHCCLAY 15:02 | PROVIDERS: ATTEND Family Medicine | DX: B34.9 Viral infection, unspecified (principal) ==

== ENCOUNTER → 2022-05-09 | Outpatient (CLI) | payer MEDICARE, OTHER ==
[~2022-05-09] MED LIST changes: +STIO1AER IN; +VITA100093 PO
== END ==
LOC: M LABSMTC 11:52
PROVIDERS: ATTEND Anesthesiology
DX: Z01.818 Encounter for other preprocedural examination (principal); Z11.52 Encounter for screening for COVID-19

== ENCOUNTER 2022-05-14 06:24 | Day surgery (SDC) | payer OTHER ==
[~2022-05-14] VITALS: Ht 157.5 cm; Wt 54.4 kg
[~2022-05-14 06:24] MED LIST changes: +NS 1,000 ML IV ONE
[2022-05-14] MEDS ORDERED: propofoL 200 MG/20 ML VIAL As Ordered ONE ×2 (07:32→07:54)
[2022-05-14] MEDS ORDERED: LIDOCAINE 2% 100MG/5ML SDV (FOR ANES.) As Ordered ONE (07:32)
[2022-05-14 08:35] VITALS: BP 166/71
== END 2022-05-15 08:37 | disposition home or self-care (01) ==
LOC: M OPP 06:24
PROVIDERS: ATTEND Internal Medicine Gastroenterology
DX: Z80.0 Family history of malignant neoplasm of digestive organs (principal); D12.6 Benign neoplasm of colon, unspecified; K64.4 Residual hemorrhoidal skin tags; K64.8 Other hemorrhoids; K57.30 Diverticulosis of large intestine without perforation or abscess without bleeding; K63.89 Other specified diseases of intestine; I10 Essential (primary) hypertension; J44.9 Chronic obstructive pulmonary disease, unspecified; F17.200 Nicotine dependence, unspecified, uncomplicated; Z86.19 Personal history of other infectious and parasitic diseases; Z85.3 Personal history of malignant neoplasm of breast; Z86.711 Personal history of pulmonary embolism; G47.33 Obstructive sleep apnea (adult) (pediatric); Z99.89 Dependence on other enabling machines and devices; Z79.810 Long term (current) use of selective estrogen receptor modulators (SERMs); Z79.891 Long term (current) use of opiate analgesic; Z79.899 Other long term (current) drug therapy; Z88.1 Allergy status to other antibiotic agents; Z88.5 Allergy status to narcotic agent; Z91.040 Latex allergy status; Z91.048 Other nonmedicinal substance allergy status

== ENCOUNTER → 2022-06-27 | Outpatient (CLI) | payer OTHER ==
[~2022-06-27] MED LIST changes: -NS 1,000 ML IV ONE
== END ==
LOC: M RAD 10:46
PROVIDERS: ATTEND Internal Medicine Pulmonary Disease
DX: R91.8 Other nonspecific abnormal finding of lung field (principal)

== ENCOUNTER → 2022-08-29 | Outpatient (REF) | payer OTHER ==
[2022-08-29 18:35] LABS: HEMOGLOBIN A1c 6.7 % (4.0-6.0)
[2022-08-29 18:53] LABS: ALBUMIN 3.5 G/DL (3.2-5.2); ALKALINE PHOSPHATASE 38 U/L (46-116); ALT/SGPT < 9 U/L (7.0-40); AST/SGOT 15 U/L (<34); BILIRUBIN,TOTAL 0.3 MG/DL (0.3-1.2); BLOOD UREA NITROGEN 15 MG/DL (9-23); CALCIUM LEVEL 8.2 MG/DL (8.3-10.6); CARBON DIOXIDE LEVEL 26 MMOL/L (20-31); CHLORIDE LEVEL 107 MMOL/L (98-107); CHOLESTEROL LEVEL 111 MG/DL (<200); CHOLESTEROL RISK RATIO 3.22 (<5); CREATININE FOR GFR 1.25 MG/DL (0.55-1.30); GLOMERULAR FILTRATION RATE 44.2 (>39); GLUCOSE, FASTING 111 MG/DL (74-106); HDL CHOLESTEROL 34.4 MG/DL (>40); LDL CHOLESTEROL 44.2 MG/DL (<100); NON-HDL-C 76.6 MG/DL; POTASSIUM SERUM 4.2 MMOL/L (3.5-5.1); SODIUM LEVEL 137 MMOL/L (136-145); TOTAL PROTEIN 5.9 G/DL (5.7-8.2); TRIGLYCERIDES LEVEL 162 MG/DL (<150)
== END ==
LOC: M SFHCCLAY 11:48
PROVIDERS: ATTEND Nurse Practitioner Family
DX: I10 Essential (primary) hypertension (principal); E78.2 Mixed hyperlipidemia; E11.9 Type 2 diabetes mellitus without complications

== ENCOUNTER → 2022-12-30 | Outpatient (CLI) | payer OTHER | LOC: M PLAIMG 13:08 | PROVIDERS: ATTEND Internal Medicine Pulmonary Disease | DX: R91.8 Other nonspecific abnormal finding of lung field (principal) ==

== ENCOUNTER → 2023-01-09 | Outpatient (CLI) | payer OTHER | LOC: M WHC 12:06 | PROVIDERS: ATTEND Specialist | DX: M85.89 Other specified disorders of bone density and structure, multiple sites (principal) ==

== ENCOUNTER → 2023-02-21 | Outpatient (REF) | payer OTHER ==
[2023-02-21 18:16] LABS: HEMOGLOBIN A1c 6.1 % (4.0-6.0)
[2023-02-21 18:21] LABS: ALBUMIN 3.5 G/DL (3.2-5.2); BILIRUBIN,TOTAL 0.3 MG/DL (0.3-1.2); CALCIUM LEVEL 9.4 MG/DL (8.3-10.6); CHOLESTEROL RISK RATIO 3.47 (<5); CREATININE FOR GFR 1.08 MG/DL (0.55-1.30); GLOMERULAR FILTRATION RATE 52.2 (>39); HDL CHOLESTEROL 36.5 MG/DL (>40); LDL CHOLESTEROL 46.9 MG/DL (<100); NON-HDL-C 90.5 MG/DL; POTASSIUM SERUM 3.7 MMOL/L (3.5-5.1); TOTAL PROTEIN 6.2 G/DL (5.7-8.2)
== END ==
LOC: M SFHCCLAY 11:02
PROVIDERS: ATTEND Nurse Practitioner Family
DX: Z00.00 Encounter for general adult medical examination without abnormal findings (principal); E78.2 Mixed hyperlipidemia; I10 Essential (primary) hypertension; E11.9 Type 2 diabetes mellitus without complications; M54.16 Radiculopathy, lumbar region

== ENCOUNTER → 2023-08-27 | Outpatient (REF) | payer OTHER ==
[2023-08-27 19:42] LABS: HEMOGLOBIN A1c 6.2 % (4.0-6.0)
[2023-08-27 19:49] LABS: ALBUMIN 3.3 G/DL (3.2-5.2); BILIRUBIN,TOTAL 0.3 MG/DL (0.3-1.2); CHOLESTEROL RISK RATIO 3.61 (<5); CREATININE FOR GFR 1.29 MG/DL (0.55-1.30); GLOMERULAR FILTRATION RATE 42.6 (>39); HDL CHOLESTEROL 32.6 MG/DL (>40); LDL CHOLESTEROL 46.6 MG/DL (<100); NON-HDL-C 85.4 MG/DL; POTASSIUM SERUM 4.4 MMOL/L (3.5-5.1); TOTAL PROTEIN 5.9 G/DL (5.7-8.2)
== END ==
LOC: M SFHCCLAY 10:57
PROVIDERS: ATTEND Nurse Practitioner Family
DX: E78.2 Mixed hyperlipidemia (principal); I10 Essential (primary) hypertension; E11.9 Type 2 diabetes mellitus without complications; M54.16 Radiculopathy, lumbar region; R91.1 Solitary pulmonary nodule

== ENCOUNTER → 2023-09-03 | Outpatient (CLI) | payer OTHER | LOC: M PLAIMG 12:47 | PROVIDERS: ATTEND Internal Medicine Pulmonary Disease | DX: R91.8 Other nonspecific abnormal finding of lung field (principal) ==

== ENCOUNTER 2023-09-24 10:18 | Outpatient (RCR) | payer MEDICARE, OTHER ==
[2017-12-23 13:16] LABS: HEMATOCRIT 40.1 % (37.0-51.0); HEMOGLOBIN 13.4 g/dl (12.0-18.0); LYMPH % 30.5 % (10.0-58.5); MEAN CORPUSCULAR HEMOGLOBIN 32.4 pg (26.0-32.0); MEAN CORPUSCULAR HGB CONC 33.4 g/dl (31.0-36.0); MEAN CORPUSCULAR VOLUME 97.2 fl (80.0-97.0); NEUTROPHILS # 5.2 10^3/uL (2.0-7.8); NEUTROPHILS % 59.7 % (37.0-92.0); RED BLOOD COUNT 4.13 10^6/uL (4.2-6.3); WHITE BLOOD COUNT 8.7 10^3/uL (4.1-10.9)
[2017-12-23 13:26] LABS: INR 0.99; PROTHROMBIN TIME 13.2 SECONDS (12.1-14.4)
[2017-12-23 13:28] VITALS: BP 111/74; TEMP 98.1; O2SAT 98
[2017-12-23 14:19] LABS: ALKALINE PHOSPHATASE 46 U/L (44-147); BLOOD UREA NITROGEN 17 MG/DL (6-20); CALCIUM LEVEL 9.3 MG/DL (8.5-10.2); CARBON DIOXIDE LEVEL 24.1 MEQ/L (23-31); CHLORIDE LEVEL 102 MMOL/L (98-107); CREATININE FOR GFR 1.39 MG/DL (0.60-1.10); GLOMERULAR FILTRATION RATE 39.6 (>39); GLUCOSE, FASTING 176 MG/DL (70-105); SODIUM LEVEL 136.4 MMOL/L (136-145); TOTAL PROTEIN 6.2 GM/DL (6.4-8.3)
[2018-06-22 13:00] VITALS: BP 119/74; TEMP 97.7; O2SAT 98
[2018-06-22 13:06] LABS: HEMATOCRIT 36.9 % (36.0-47.0); HEMOGLOBIN 12.6 g/dl (12.0-15.5); LYMPH % 30.9 % (24.0-44.0); MEAN CORPUSCULAR HEMOGLOBIN 32.6 pg (27.0-33.0); MEAN CORPUSCULAR HGB CONC 34.1 g/dl (32.0-36.5); MEAN CORPUSCULAR VOLUME 95.6 fl (80.0-96.0); NEUTROPHILS # 4.9 10^3/uL (1.8-7.7); NEUTROPHILS % 61.1 % (36.0-66.0); RED BLOOD COUNT 3.86 10^6/uL (4.00-5.40)
[2018-06-22 13:22] LABS: INR 1.06; PROTHROMBIN TIME 13.9 SECONDS (12.1-14.4)
[2018-06-22 13:23] LABS: PARTIAL THROMBOPLASTIN TIME 29.1 SECONDS (25.4-37.6)
[2018-06-22 14:15] LABS: ALBUMIN 3.8 GM/DL (3.5-5.2); ALKALINE PHOSPHATASE 40 U/L (44-147); BLOOD UREA NITROGEN 26 MG/DL (6-20); CALCIUM LEVEL 9.6 MG/DL (8.5-10.2); CARBON DIOXIDE LEVEL 28 MEQ/L (23-31); CHLORIDE LEVEL 101 MMOL/L (98-107); CREATININE FOR GFR 1.33 MG/DL (0.60-1.10); GLOMERULAR FILTRATION RATE 41.6 (>39); GLUCOSE, FASTING 97 MG/DL (70-105); POTASSIUM SERUM 3.8 MMOL/L (3.5-5.1); SODIUM LEVEL 137 MMOL/L (135-145); TOTAL PROTEIN 5.9 GM/DL (6.4-8.3)
[2018-12-22 11:18] VITALS: BP 119/60; TEMP 97.4; O2SAT 99
[2018-12-22 11:25] LABS: HEMATOCRIT 40.3 % (36.0-47.0); HEMOGLOBIN 13.5 g/dl (12.0-15.5); LYMPH % 30.5 % (24.0-44.0); MEAN CORPUSCULAR HEMOGLOBIN 32.5 pg (27.0-33.0); MEAN CORPUSCULAR HGB CONC 33.5 g/dl (32.0-36.5); MEAN CORPUSCULAR VOLUME 97.1 fl (80.0-96.0); NEUTROPHILS % 60.6 % (36.0-66.0); RED BLOOD COUNT 4.15 10^6/uL (4.00-5.40); WHITE BLOOD COUNT 8.2 10^3/uL (4.0-10.0)
[2018-12-22 12:02] LABS: ALBUMIN 3.9 GM/DL (3.5-5.2); ALKALINE PHOSPHATASE 41 U/L (44-147); BLOOD UREA NITROGEN 16 MG/DL (6-20); CARBON DIOXIDE LEVEL 28 MEQ/L (23-31); CHLORIDE LEVEL 103 MMOL/L (98-107); CREATININE FOR GFR 1.43 MG/DL (0.60-1.10); GLOMERULAR FILTRATION RATE 38.2 (>39); GLUCOSE, FASTING 121 MG/DL (70-105); SODIUM LEVEL 140 MMOL/L (135-145)
[2019-08-27 11:13] VITALS: BP 132/75; O2SAT 99
[2019-08-27 11:26] LABS: BASO # 0.1 10^3/uL (0.0-0.2); BASO % 0.8 % (0.0-1.0); EOS # 0.2 10^3/uL (0.0-0.5); EOS % 2.1 % (0.0-3.0); HEMATOCRIT 35.6 % (36.0-47.0); HEMOGLOBIN 11.9 g/dl (12.0-15.5); LYMPH # 2.1 10^3/uL (1.5-5.0); LYMPH % 27.7 % (24.0-44.0); MEAN CORPUSCULAR HEMOGLOBIN 31.7 pg (27.0-33.0); MEAN CORPUSCULAR HGB CONC 33.4 g/dl (32.0-36.5); MEAN CORPUSCULAR VOLUME 94.9 fl (80.0-96.0); MONO # 0.6 10^3/uL (0.0-0.8); MONO % 7.4 % (0.0-5.0); NEUTROPHILS # 4.7 10^3/uL (1.5-8.5); NEUTROPHILS % 61.2 % (36.0-66.0); PLATELET COUNT, AUTOMATED 192 10^3/uL (150-450); RED BLOOD COUNT 3.75 10^6/uL (4.00-5.40); WHITE BLOOD COUNT 7.7 10^3/uL (4.0-10.0)
[2019-08-27 11:59] LABS: ALBUMIN 3.2 GM/DL (3.2-5.2); BILIRUBIN,TOTAL 0.3 MG/DL (0.2-1.0); CALCIUM LEVEL 9.2 MG/DL (8.8-10.2); CREATININE FOR GFR 1.28 MG/DL (0.55-1.30); GLOMERULAR FILTRATION RATE 43.4 (>39); POTASSIUM SERUM 3.4 MEQ/L (3.5-5.1); TOTAL PROTEIN 6.4 GM/DL (6.4-8.2)
[2019-08-27 12:45] LABS: PERCENT SATURATION 14.7 % (13.2-45.0)
[2019-08-27 17:11] LABS: FOLATE 7.9 NG/ML
[2021-05-23 11:02] VITALS: BP 126/60; O2SAT 97
[2021-05-23 11:03] LABS: BASO # 0.1 10^3/uL (0.0-0.2); BASO % 1.1 % (0.0-1.0); EOS # 0.2 10^3/uL (0.0-0.5); EOS % 1.8 % (0.0-3.0); HEMATOCRIT 33.5 % (36.0-47.0); HEMOGLOBIN 11.3 g/dl (12.0-15.5); LYMPH # 1.8 10^3/uL (1.5-5.0); LYMPH % 21.7 % (24.0-44.0); MEAN CORPUSCULAR HEMOGLOBIN 30.5 pg (27.0-33.0); MEAN CORPUSCULAR HGB CONC 33.7 g/dl (32.0-36.5); MEAN CORPUSCULAR VOLUME 90.5 fl (80.0-96.0); MONO # 0.6 10^3/uL (0.0-0.8); MONO % 7.5 % (2.0-8.0); NEUTROPHILS # 5.6 10^3/uL (1.5-8.5); NEUTROPHILS % 67.3 % (36.0-66.0); PLATELET COUNT, AUTOMATED 195 10^3/uL (150-450); WHITE BLOOD COUNT 8.3 10^3/uL (4.0-10.0)
[2021-05-23 11:47] LABS: ALBUMIN 3.5 GM/DL (3.2-5.2); BILIRUBIN,TOTAL 0.4 MG/DL (0.2-1.0); CALCIUM LEVEL 9.3 MG/DL (8.8-10.2); CREATININE FOR GFR 1.34 MG/DL (0.55-1.30); GLOMERULAR FILTRATION RATE 40.9 (>39); PERCENT SATURATION 13.6 % (13.2-45.0); TOTAL PROTEIN 6.1 GM/DL (6.4-8.2)
[2021-05-23 11:50] LABS: CARCINOEMBRYONIC ANTIGEN 3.9 NG/ML (<2.5)
[2021-05-23 11:51] LABS: FOLATE 15.9 NG/ML
[2021-11-27 11:27] LABS: BASO # 0.1 10^3/uL (0.0-0.2); BASO % 0.9 % (0.0-1.0); EOS # 0.1 10^3/uL (0.0-0.5); EOS % 1.3 % (0.0-3.0); HEMATOCRIT 33.6 % (36.0-47.0); LYMPH # 1.7 10^3/uL (1.5-5.0); LYMPH % 22.4 % (24.0-44.0); MEAN CORPUSCULAR HEMOGLOBIN 30.6 pg (27.0-33.0); MEAN CORPUSCULAR HGB CONC 32.7 g/dl (32.0-36.5); MEAN CORPUSCULAR VOLUME 93.3 fl (80.0-96.0); MONO # 0.6 10^3/uL (0.0-0.8); MONO % 7.7 % (2.0-8.0); NEUTROPHILS % 66.9 % (36.0-66.0); PLATELET COUNT, AUTOMATED 182 10^3/uL (150-450); WHITE BLOOD COUNT 7.4 10^3/uL (4.0-10.0)
[2021-11-27 11:40] VITALS: BP 120/55; O2SAT 100
[2021-11-27 11:55] LABS: ALBUMIN 3.1 GM/DL (3.2-5.2); BILIRUBIN,TOTAL 0.3 MG/DL (0.2-1.0); CALCIUM LEVEL 8.8 MG/DL (8.8-10.2); CREATININE FOR GFR 1.31 MG/DL (0.55-1.30); GLOMERULAR FILTRATION RATE 41.9 (>39); POTASSIUM SERUM 3.5 MEQ/L (3.5-5.1); TOTAL PROTEIN 6.3 GM/DL (6.4-8.2)
[2021-11-27 12:48] LABS: CA15-3 ANTIGEN 11.6 U/ML (<32.4); CARCINOEMBRYONIC ANTIGEN 5.5 NG/ML (<2.5)
[2022-06-11 11:42] LABS: BASO % 0.7 % (0.0-1.0); EOS # 0.1 10^3/uL (0.0-0.5); HEMATOCRIT 33.8 % (36.0-47.0); HEMOGLOBIN 11.2 g/dl (12.0-15.5); LYMPH # 1.8 10^3/uL (1.5-5.0); LYMPH % 32.3 % (24.0-44.0); MEAN CORPUSCULAR HGB CONC 33.1 g/dl (32.0-36.5); MEAN CORPUSCULAR VOLUME 93.6 fl (80.0-96.0); MONO # 0.4 10^3/uL (0.0-0.8); MONO % 7.3 % (2.0-8.0); NEUTROPHILS # 3.2 10^3/uL (1.5-8.5); PLATELET COUNT, AUTOMATED 163 10^3/uL (150-450); RED BLOOD COUNT 3.61 10^6/uL (4.00-5.40); WHITE BLOOD COUNT 5.6 10^3/uL (4.0-10.0)
[2022-06-11 12:16] LABS: ALBUMIN 3.2 G/DL (3.2-5.2); ALKALINE PHOSPHATASE 39 U/L (46-116); ALT/SGPT < 9 U/L (7.0-40); AST/SGOT 15 U/L (<34); BILIRUBIN,TOTAL 0.3 MG/DL (0.3-1.2); BLOOD UREA NITROGEN 13 MG/DL (9-23); CALCIUM LEVEL 8.6 MG/DL (8.3-10.6); CARBON DIOXIDE LEVEL 28 MMOL/L (20-31); CHLORIDE LEVEL 105 MMOL/L (98-107); CREATININE FOR GFR 1.15 MG/DL (0.55-1.30); GLOMERULAR FILTRATION RATE 48.7 (>39); GLUCOSE, FASTING 136 MG/DL (74-106); POTASSIUM SERUM 4.1 MMOL/L (3.5-5.1); SODIUM LEVEL 138 MMOL/L (136-145); TOTAL PROTEIN 5.6 G/DL (5.7-8.2)
[2022-06-18 15:01] VITALS: BP 128/64; O2SAT 100
[2022-12-18 15:24] VITALS: BP 126/82; O2SAT 98
[2022-12-18 15:38] LABS: BASO # 0.1 10^3/uL (0.0-0.2); BASO % 0.7 % (0.0-1.0); EOS # 0.1 10^3/uL (0.0-0.5); EOS % 1.6 % (0.0-3.0); HEMATOCRIT 35.9 % (36.0-47.0); HEMOGLOBIN 12.3 g/dl (12.0-15.5); LYMPH # 2.9 10^3/uL (1.5-5.0); LYMPH % 38.1 % (24.0-44.0); MEAN CORPUSCULAR HEMOGLOBIN 32.7 pg (27.0-33.0); MEAN CORPUSCULAR HGB CONC 34.3 g/dl (32.0-36.5); MEAN CORPUSCULAR VOLUME 95.5 fl (80.0-96.0); MONO # 0.5 10^3/uL (0.0-0.8); MONO % 5.9 % (2.0-8.0); NEUTROPHILS # 4.1 10^3/uL (1.5-8.5); PLATELET COUNT, AUTOMATED 189 10^3/uL (150-450); RED BLOOD COUNT 3.76 10^6/uL (4.00-5.40); WHITE BLOOD COUNT 7.6 10^3/uL (4.0-10.0)
[2022-12-18 16:10] LABS: ALBUMIN 3.6 G/DL (3.2-5.2); ALKALINE PHOSPHATASE 40 U/L (46-116); ALT/SGPT < 9 U/L (7.0-40); AST/SGOT 15 U/L (<34); BILIRUBIN,TOTAL 0.4 MG/DL (0.3-1.2); BLOOD UREA NITROGEN 15 MG/DL (9-23); CARBON DIOXIDE LEVEL 27 MMOL/L (20-31); CHLORIDE LEVEL 107 MMOL/L (98-107); CREATININE FOR GFR 1.13 MG/DL (0.55-1.30); GLOMERULAR FILTRATION RATE 49.6 (>39); GLUCOSE, FASTING 107 MG/DL (74-106); POTASSIUM SERUM 3.4 MMOL/L (3.5-5.1); SODIUM LEVEL 139 MMOL/L (136-145); TOTAL PROTEIN 6.6 G/DL (5.7-8.2)
[2023-06-25 11:05] VITALS: BP 119/52; O2SAT 96
[2023-06-25 11:18] LABS: BASO % 0.8 % (0.0-1.0); EOS # 0.1 10^3/uL (0.0-0.5); EOS % 1.4 % (0.0-3.0); HEMATOCRIT 33.6 % (36.0-47.0); HEMOGLOBIN 11.5 g/dl (12.0-15.5); LYMPH # 1.7 10^3/uL (1.5-5.0); LYMPH % 32.6 % (24.0-44.0); MEAN CORPUSCULAR HEMOGLOBIN 32.6 pg (27.0-33.0); MEAN CORPUSCULAR HGB CONC 34.2 g/dl (32.0-36.5); MEAN CORPUSCULAR VOLUME 95.2 fl (80.0-96.0); MONO # 0.2 10^3/uL (0.0-0.8); MONO % 3.5 % (2.0-8.0); NEUTROPHILS # 3.1 10^3/uL (1.5-8.5); NEUTROPHILS % 60.9 % (36.0-66.0); PLATELET COUNT, AUTOMATED 178 10^3/uL (150-450); RED BLOOD COUNT 3.53 10^6/uL (4.00-5.40); WHITE BLOOD COUNT 5.1 10^3/uL (4.0-10.0)
[2023-06-25 11:48] LABS: ALBUMIN 3.1 G/DL (3.2-5.2); BILIRUBIN,TOTAL 0.3 MG/DL (0.3-1.2); CALCIUM LEVEL 8.9 MG/DL (8.3-10.6); CREATININE FOR GFR 1.19 MG/DL (0.55-1.30); GLOMERULAR FILTRATION RATE 46.7 (>39); POTASSIUM SERUM 3.8 MMOL/L (3.5-5.1)
[2023-06-25 12:08] LABS: CA15-3 ANTIGEN 11.7 U/ML (<32.4)
[~2023-09-24] VITALS: Ht 154.9 cm; Wt 82.6 kg
[~2023-09-24 10:18] MED LIST changes: -CITA20TA6; +CITA20TA6 PO; +GABA-1172 PO; -GABA-282 PO
[2023-09-24 10:45] VITALS: BP 140/74; O2SAT 97
[2023-09-24 10:56] LABS: BASO % 0.6 % (0.0-1.0); EOS # 0.1 10^3/uL (0.0-0.5); EOS % 2.5 % (0.0-3.0); HEMATOCRIT 32.9 % (36.0-47.0); HEMOGLOBIN 11.5 g/dl (12.0-15.5); LYMPH # 1.6 10^3/uL (1.5-5.0); MEAN CORPUSCULAR VOLUME 94.5 fl (80.0-96.0); MONO # 0.2 10^3/uL (0.0-0.8); NEUTROPHILS # 2.7 10^3/uL (1.5-8.5); NEUTROPHILS % 57.1 % (36.0-66.0); PLATELET COUNT, AUTOMATED 153 10^3/uL (150-450); RED BLOOD COUNT 3.48 10^6/uL (4.00-5.40); WHITE BLOOD COUNT 4.8 10^3/uL (4.0-10.0)
[2023-09-24 11:32] LABS: ALBUMIN 3.3 G/DL (3.2-5.2); BILIRUBIN,TOTAL 0.4 MG/DL (0.3-1.2); CALCIUM LEVEL 8.9 MG/DL (8.3-10.6); CREATININE FOR GFR 1.37 MG/DL (0.55-1.30); GLOMERULAR FILTRATION RATE 39.7 (>39); POTASSIUM SERUM 3.9 MMOL/L (3.5-5.1); TOTAL PROTEIN 5.9 G/DL (5.7-8.2)
[2024-01-14] MEDS ORDERED: D-10TAB3 PO (09:28)
[2024-01-14] MEDS ORDERED: MULT-40 PO (09:28)
[2024-01-14] MEDS ORDERED: ACET650T15 PO (09:28)
== END 2024-01-21 | disposition expired ==
LOC: M ONCM 01-21
PROVIDERS: ATTEND Specialist
DX: Z08 Encounter for follow-up examination after completed treatment for malignant neoplasm (principal); Z85.3 Personal history of malignant neoplasm of breast; F17.210 Nicotine dependence, cigarettes, uncomplicated; R91.8 Other nonspecific abnormal finding of lung field; Z79.01 Long term (current) use of anticoagulants; Z79.811 Long term (current) use of aromatase inhibitors; Z79.899 Other long term (current) drug therapy
CPT/HCPCS: 36415; 80053; 82378; 82607; 82728; 82746; 83520; 83550; 85025; 85027; 85610; 85730; 86300; G0463

== ENCOUNTER 2024-01-14 06:46 | Emergency (ER) | payer OTHER ==
[~2024-01-14] VITALS: Ht 157.5 cm; Wt 81.6 kg
[2024-01-14 08:15] LABS: VENOUS BASE EXCESS -5.3 (-2.0-2.0); VENOUS HCO3 18.7 MMOL/L (23.0-27.0); VENOUS O2 SATURATION 90.7 % (60.0-80.0); VENOUS PARTIAL PRESSURE CO2 30.3 mmHg (38.0-50.0); VENOUS PARTIAL PRESSURE O2 64.6 mmHg (30.0-50.0); VENOUS PH 7.408 UNITS (7.330-7.430); VENOUS TOTAL CO2 19.6 MMOL/L (24.0-28.0)
[2024-01-14] MEDS: IPRATROPIUM 0.5MG/ALBUTEROL 2.5MG INH SOL UD 3ML (DUONEB) NEB ONE (08:16)
[2024-01-14] MEDS: ALBUTEROL SULFATE 2.5MG/0.5ML INH NEB SOLN INH ONE (08:16)
[2024-01-14] MEDS: methylPREDNISolone 125MG 2ML VIAL IV STA (08:19)
[2024-01-14 08:23] LABS: MEAN CORPUSCULAR HEMOGLOBIN 32.7 pg (27.0-33.0); MEAN CORPUSCULAR HGB CONC 34.2 g/dl (32.0-36.5); MEAN CORPUSCULAR VOLUME 95.7 fl (80.0-96.0); RED BLOOD COUNT 2.11 10^6/uL (4.00-5.40); WHITE BLOOD COUNT 13.2 10^3/uL (4.0-10.0)
[2024-01-14 08:28] LABS: HEMATOCRIT 20.2 % (36.0-47.0)
[2024-01-14 08:30] LABS: HEMOGLOBIN 6.9 g/dl (12.0-15.5); PLATELET COUNT, AUTOMATED 14 10^3/uL (150-450)
[2024-01-14 08:31] LABS: INR 1.45; PARTIAL THROMBOPLASTIN TIME 33.1 SECONDS (24.8-34.2); PROTHROMBIN TIME 17.9 SECONDS (12.5-14.5)
[2024-01-14 08:46] LABS: CK-MB VALUE MASS < 1.0 NG/ML (<3.6)
[2024-01-14 08:47] LABS: LIPASE 37 U/L (12-53)
[2024-01-14 08:48] LABS: AMYLASE 100 U/L (30-118)
[2024-01-14 08:49] LABS: ALBUMIN 2.7 G/DL (3.2-5.2); ALKALINE PHOSPHATASE 64 U/L (35-104); ALT/SGPT 17 U/L (7.0-40); AST/SGOT 32 U/L (<34); BILIRUBIN,DIRECT 0.3 MG/DL (<0.4); BILIRUBIN,TOTAL 0.6 MG/DL (0.3-1.2); BLOOD UREA NITROGEN 25 MG/DL (9-23); CALCIUM LEVEL 8.7 MG/DL (8.3-10.6); CARBON DIOXIDE LEVEL 19 MMOL/L (20-31); CHLORIDE LEVEL 103 MMOL/L (98-107); CREATININE FOR GFR 1.35 MG/DL (0.55-1.30); GLOMERULAR FILTRATION RATE 40.3 (>39); GLUCOSE, FASTING 144 MG/DL (74-106); POTASSIUM SERUM 3.4 MMOL/L (3.5-5.1); SODIUM LEVEL 139 MMOL/L (136-145); TOTAL PROTEIN 5.6 G/DL (5.7-8.2)
[2024-01-14 08:59] LABS: CPK CREATINE PHOSPHOKINASE 26 U/L (34-145); MB/CK RELATIVE INDEX 3.84 (< OR =4)
[2024-01-14] MEDS ORDERED: ACET650T15 PO (09:28)
[2024-01-14] MEDS ORDERED: MULT-40 PO (09:28)
[2024-01-14] MEDS ORDERED: D-10TAB3 PO (09:28)
[2024-01-14 09:29] LABS: CK-MB VALUE MASS < 1.0 NG/ML (<3.6)
[2024-01-14 09:30] LABS: CPK CREATINE PHOSPHOKINASE 15 U/L (34-145); MB/CK RELATIVE INDEX 6.66 (< OR =4)
[2024-01-14 09:30] LABS: ATYPICAL LYMPH 5 % (0-5); BLAST CELLS 2 % (0-0); EOSINOPHILS 3 % (0-3); LYMPHOCYTES 24 % (16-44); METAMYELOCYTES 4 % (0-0); MONOCYTES 22 % (0-5); MYELOCYTES 12 % (0-0); NEUTROPHILS 16 % (28-66); PROMYELOCYTES 8 % (0-0)
[2024-01-14] MEDS ORDERED: HOME MED LIST COMPLETE! XX SCH (09:30)
[2024-01-14 09:31] LABS: ANISOCYTOSIS 1+; SMUDGE CELLS 4+
[2024-01-14 09:32] LABS: HYPOCHROMASIA 2+; PLATELET ESTIMATE MARKED DECREASE (NORMAL)
[2024-01-14 11:26] VITALS: BP 116/55; TEMP 98.9; O2SAT 98
== END 2024-01-14 11:29 | disposition short-term general hospital (02) ==
LOC: M ED 06:46
DX: J44.1 Chronic obstructive pulmonary disease with (acute) exacerbation (principal); R06.00 Dyspnea, unspecified; D69.6 Thrombocytopenia, unspecified; D64.9 Anemia, unspecified; I45.81 Long QT syndrome; E11.9 Type 2 diabetes mellitus without complications; I10 Essential (primary) hypertension; F17.210 Nicotine dependence, cigarettes, uncomplicated; Z88.1 Allergy status to other antibiotic agents; Z88.5 Allergy status to narcotic agent; Z91.040 Latex allergy status; Z79.1 Long term (current) use of non-steroidal anti-inflammatories (NSAID); Z79.810 Long term (current) use of selective estrogen receptor modulators (SERMs); Z79.899 Other long term (current) drug therapy
CPT/HCPCS: 71045; 80047; 80048; 80076; 82150; 82550; 82553; 82803; 83605; 83690; 83880; 84484; 85025; 85049; 85055; 85610; 85730; 86850; 86900; 86901; 87040; 87486; 87581; 87633; 87798; 93005; 93041; 94640; 96374; 99285; J2919